=== PATIENT | male | born 1955 | race Caucasian/White ===

== ENCOUNTER → 2021-08-20 15:51 | Outpatient (BNVA) | payer MEDICARE, SELFPAY | PROVIDERS: Visit Provider Urology | DX: N52.9 Male erectile dysfunction, unspecified (principal) | CPT/HCPCS: 99202 ==

== ENCOUNTER → 2022-08-20 09:16 | Outpatient (BNVA) | payer MEDICARE, SELFPAY | PROVIDERS: Visit Provider Urology | DX: N52.9 Male erectile dysfunction, unspecified (principal) | CPT/HCPCS: Q3014 ==

== ENCOUNTER 2023-08-26 08:44 | Outpatient (AMB) | payer MEDICARE, SELFPAY ==
--- NOTE | 2023-08-26 08:52 | A.OFFVIS_ITS ---
Intake Intake Visit Reasons: 1Y Follow Up(Erectile Dys) Intake Note: Patient presents today for a telehealth follow-up Meds- None Allergies to Antibiotic- No Known Allergies Blood Thinner- None - Chief Resource Officer Required: No Allergies bee stings Allergy (Unknown, Uncoded 08/26/23 08:54) severe Medication List - Last Reconciled 08/26/23 by Kush Jang MD atorvastatin 40 mg PO DAILY HPI HPI Comments History of Present Illness Details Joselito is a pleasant male. He is a patient of Dr. Charles. He seen for the following urologic conditions - erectile dysfunction Telemedicine Evaluation 15 min Consultation [facility] Ramsey Video attempted Yearly review Discussion regarding compounding injections Will continue Silver TriMix from [facility] Erectile dysfunction Longstanding Prior use of oral medications Had switched to injectable therapy at [facility] Has prior medications Prescription sent to a compounding pharmacy 12 month follow-up Review of Systems Const All systems reviewed & are unremarkable except as noted in HPI and below Reports no additional complaints Resp Reports no additional complaints GI Reports no additional complaints Reports as per HPI Musc Reports no additional complaints Physical Exam Telemedicine evaluation Appropriate responses Regular breathing rate and rhythm HEENT Head: Yes normal to inspection Ears: hearing grossly normal bilaterally Eyes General: appearance normal, both eyes and all related structures Neck Neck: Yes normal visual inspection Chest Chest palpation & inspection: normal inspection of the chest Resp Effort & Inspection: normal respiratory effort and able to speak in complete sentences Assessment & Plan Assessment & Plan (1) Erectile dysfunction: Code(s): N52.9 - Male erectile dysfunction, unspecified Plan Continue current medication dosing Patient Instructions: Imaging studies, laboratory and physical exam results were discussed and reviewed in detail. No major barriers to patient understanding were identified. An opportunity to ask questions regarding the treatment plan was provided. All questions were answered. The patient expressed understanding and agreement with the above treatment plan. The patient is aware they should contact our office by phone for worsening of their current condition or the appearance of new urologic symptoms. Compliance is encouraged with any medications and followup testing that is ordered. It is a privilege to participate in the urologic care of your patient. If you have any questions or concerns regarding treatment for the above conditions, or other urologic issues, please do not hesitate to contact me. The office telephone contact is [phone]. This note is constructed using voice recognition software. While every effort has been made to ensure accuracy chip loft worker errors may have been included. Yours sincerely, Dr Kush Jang MD, [facility] - Urology Providers of Expert, Compassionate Care for the Genitourinary System Telehealth Telehealth Location of provider rendering services: practice address Location of patient: address on file Patient Identification confirmed using: Name, : Yes Telehealth method: video Patient verbally consented to treatment: Yes Patient verbally consented to billing insurance company: Yes Patient informed of any privacy concerns related to visit: Yes Coding Level of Care Code Tele Est Pt Level 4 (42521) Diagnoses Erectile dysfunction N52.9
== END 2023-08-26 11:43 | disposition home or self-care (01) ==
LOC: HO.HUSH 08:44
PROVIDERS: Visit Provider Urology
DX: N52.9 Male erectile dysfunction, unspecified (principal)
CPT/HCPCS: 99213

== ENCOUNTER → 2023-08-26 08:44 | Outpatient (BNVA) | payer MEDICARE, SELFPAY | PROVIDERS: Visit Provider Urology ==

== ENCOUNTER 2024-09-12 08:41 | Outpatient (AMB) | payer MEDICARE, SELFPAY ==
--- NOTE | 2024-09-12 08:41 | A.OFFVIS_ITS ---
Intake Visit Reasons: 1y/Erectile dys Intake Note: Patient presents today for a 1Y follow-up ERECTILE DYS Meds- None Allergies to Antibiotic- NONE Blood Thinner- None - Dining Service Worker Required: No Allergies bee stings Allergy (Unknown, Uncoded 09/12/24 08:42) severe HPI Comments Details: Joselito is a pleasant male. He is a patient of Dr. Charles. He seen for the following urologic conditions - erectile dysfunction Telemedicine Evaluation 15 min Consultation Emailage Ramsey Video attempted Yearly review Discussion regarding compounding injections Will continue Silver TriMix from [facility] - 10-15U Erectile dysfunction Longstanding Prior use of oral medications Had switched to injectable therapy at [facility] Has prior medications Prescription sent to a compounding pharmacy 12 month follow-up Review of Systems Const Denies chills and Denies fever(s) Card Reports no additional complaints and Denies syncope Resp Denies cough GI Denies abdominal pain and Denies heartburn Reports as per HPI and Denies change in libido Neuro Denies syncope Psych Denies change in libido Endo Denies change in libido Physical Exam Const General: cooperative, healthy appearing, comfortable and no acute distress Orientation/consciousness: patient oriented x3 HEENT Face and sinus: Yes normal facial exam Mouth: moist mucous membranes Neck Neck: Yes normal visual inspection, Yes full ROM and Yes trachea midline Chest Chest palpation & inspection: normal inspection of the chest Resp Effort & Inspection: normal respiratory effort, able to speak in complete sentences and no respiratory distress GI Inspection: Yes normal to inspection Back/Spine/Pelvis Cervical Spine: normal cervical lordosis Thoracic/Lumbar Spine: thoracic and lumbar spine normal to inspection Skin General skin exam: no rashes or lesions noted Neuro General: patient oriented x3, gait normal, tone normal and moves all extremities Extrem General: Yes normal to inspection and Yes capillary refill normal Telehealth Telehealth Telehealth Platform: Emailage Location of provider rendering services: practice address Location of patient: address on file Patient Identification confirmed using: Name, : Yes Telehealth method: video Patient verbally consented to treatment: Yes Patient verbally consented to billing insurance company: Yes Patient informed of any privacy concerns related to visit: Yes Minutes spent on Phone/Video with Pt.: 15 Assessment & Plan Assessment & Plan (1) Erectile dysfunction: Code(s): N52.9 - Male erectile dysfunction, unspecified Category: Medical Plan Continue current dosing Twelve month follow-up office Patient Instructions: This note is constructed using voice recognition software. While every effort has been made to ensure accuracy director systems errors may have been included. Imaging studies, laboratory and physical exam results were discussed and reviewed in detail. No major barriers to patient understanding were identified. An opportunity to ask questions regarding the treatment plan was provided. All questions were answered. The patient expressed understanding and agreement with the above treatment plan. The patient is aware they should contact our office by phone for worsening of their current condition or the appearance of new urologic symptoms. Compliance is encouraged with any medications and followup testing that is ordered. It is a privilege to participate in the urologic care of your patient. If you have any questions or concerns regarding treatment for the above conditions, or other urologic issues, please do not hesitate to contact me. The office tel ephone contact is [phone]. Sincerely, Dr Kush Jang MD, [facility] - Urology Compassionate Specialist Care for the Genitourinary System Coding Level of Care Code Tele Est Pt Level 4 (34787) Complex EM visit Add On G2211 Diagnoses Erectile dysfunction N52.9
--- OUTSIDE RECORDS SUMMARY | 2024-09-12 09:13 | XMS_ITS | Clinical Summary ---
Author Organization [facility] Address [address] [place] [address] Phone Care Team Providers Care Facilities Engineering Manager Name Role Phone Flor Mason Primary Care Provider [phone] Allergies Active Allergy Reactions Criticality Noted Date Comments Bee Venom Protein (Honey Bee) 2021 Bee stings Pravastatin 03/05/2022 Trazodone 03/05/2022 Medications aspirin 81 mg EC tablet Take 81 mg by mouth daily. Active atorvastatin (LIPITOR) 40 mg tablet Take 1 tablet (40 mg total) by mouth 1 (one) time each day. 03/10/2022 Active EPINEPHrine (EpiPen 2-Jad) 0.3 mg/0.3 mL injection Inject 0.3 mg as directed as needed. Active Active Problems Problem Noted Date Diagnosed Date Abnormal stress echo 03/05/2022 Overview (07/19/2024): 02/22/19 Elevated coronary artery calcium score 2 HLD (hyperlipidemia) 03/05/2022 Syncope 03/05/2022 Encounters Date Type Department Care Team Description 07/14/2024 Telephone [facility] [address] [place] [address] Flor Mason PA Referral (Received routine paper referral - Ab - sent to Prim[facility] - 03/10/2022 - [facility]BARA) from Last 3 Months Medical History Medical History Date Comments Erectile dysfunction DX:Erectile dysfunction Insomnia DX:Insomnia Lyme disease DX:Lyme disease Sleep apnea DX:Sleep apnea Social History Tobacco Use Types Packs/Day Years Used Date Smoking Tobacco: Never Smokeless Tobacco: Never Alcohol Use Standard Drinks/Week Comments Yes 0 (1 standard drink = 0.6 oz pur e alcohol) Sex and Gender Information Value Date Recorded Sex Assigned at Not on file Legal Sex Male 12:48 PM EST Gender Identity Not on file Sexual Orientation Not on file Obstetrics History Last Filed Vital Signs Vital Sign Reading Time Taken Comments Blood Pressure 128/80 03/10/2022 9:52 AM EDT Sit ting L Arm Pulse 83 03/10/2022 9:52 AM EDT Temperature - - Respiratory Rate - - Oxygen Saturation - - Inhaled Oxygen Concentration - - Weight 76.2 kg (168 lb) 03/31/2022 12:36 PM EDT Height 180.3 cm (5' 11 ) 03/31/2022 12:36 PM EDT Body Mass Index 23.43 03/31/2022 12:36 PM EDT Plan of Treatment Upcoming Encounters Date Type Department Care Team (Late st Contact Info) Description 11/21/2024 1:00 PM EDT Office Visit [facility] [address] [place] [address] Nate Rios MD [address] [place] [address],[address] [place] [address] Health Maintenance Due Date Last Done Comments DTaP,Tdap,and Td Vaccines (1 - Tdap) 1972 Pneumococcal Vaccine: 50+ Ye ars (1 of 1 - PCV) 11/11/2003 Zoster Vaccines (1 of 2) 11/11/2003 Abdominal Aortic Aneurysm (A AA) Screen 05/19/2022 Cholesterol Screening (Lipid Panel) 05/19/2022 Colorectal Cancer Screening: Colonoscopy 05/19/2022 Depression Screening 05/19/2022 Falls Risk Assessment 05/19/2022 Hepatitis C Screening 05/19/2022 Medicare Annual Wellness Visit 05/19/2022 Social Influencers of Health Screening 05/19/2022 COVID-19 Vaccine ( - 2023-2 5 season) 2024 Influenza Vaccine (#1) 2024 RSV Immunization Patients 60 + Years Old (1 - 1-dose 75+ series) 2028 HIB Vaccines Aged Out No longer eligi ble based on patient's age to complete this topic HPV Vaccines Aged Out No longer eligi ble based on patient's age to complete this topic Hepatitis A Vaccines Aged Out No long er eligible based on patient's age to complete this topic Hepatitis B Vaccines Aged Out No long er eligible based on patient's age to complete this topic IPV Vaccines Aged Out No longer eligi ble based on patient's age to complete this topic MMR Vaccines Aged Out No longer eligi ble based on patient's age to complete this topic Meningococcal ACWY Vaccine Aged Out N o longer eligible based on patient's age to complete this topic Meningococcal B Vacine Aged Out No lo nger eligible based on patient's age to complete this topic RSV Immunization Patients Un ade 20 months Aged Out No longer eligible b ased on patient's age to complete this topic Varicella Vaccines Aged Out No longer eligible based on patient's age to complete this topic Insurance MEDICARE Care Teams Facilities Engineering Manager Relationship Specialty Start Date End Date Flor Mason PA [address] [place] [phone] PCP - General 03/10/22
--- OUTSIDE RECORDS SUMMARY | 2024-09-12 09:13 | XMS_ITS | Clinical Summary ---
Author Organization [facility] Address [address] [place] [address] Care Team Providers Care Cattle Care Worker Name Role Phone Unavailable Primary Care Provider Unavailabl e Allergies Active Allergy Reactions Criticality Noted Date Comments Bee Venom Protein (Honey Bee) Anaphylaxis High 05/21 Medications atorvastatin (LIPITOR) 40 mg tablet 03/13/2022 Active ASPIRIN PO Take 81 mg by mouth in the morning. 06/21/1999 Active chlorhexidine (PERIDEX) 0.12 % solution Use 15 mL in the mouth or throat in the morning and at bedtime. 480 mL 09/18/2022 Active Active Problems No known active problems Social History Tobacco Use Types Packs/Day Years Used Date Smoking Tobacco: Never Assessed Sex and Gender Information Value Date Recorded Sex Assigned at Not on file Legal Sex Male 9:43 AM PST Gender Identity Male 05/18/2022 2:01 PM PST Sexual Orientation Not on file Last Filed Vital Signs Vital Sign Reading Time Taken Comments Blood Pressure 118/64 05/22/2022 10:17 AM EST Pulse 71 05/22/2022 10:17 AM EST Temperature - - Respiratory Rate - - Oxygen Saturation - - Inhaled Oxygen Concentration - - Weight - - Height - - Body Mass Index - - Plan of Treatment Health Maintenance Due Date Last Done Comments Dental Oral Exam 1955 Dental Prophylaxis 1955 Dental X-Ray: Bitewings 1955 Dental X-Ray: Full Mouth 1955 Dental X-Ray: Panoramic 09/20/2025 09/19/2022, 05/21 Meningococcal B Vaccine Aged Out No l onger eligible based on patient's age to complete this topic Medical Devices Implanted Type Area Diabetes Physician Device Identifier Shelf Expiration Date Model / Serial / Lot Nobelreplace Conical Connection Rp 4.3 X 10mm-09/18/2022 Implanted:2022 by Winston Hunter DMD MD (Quantity not on file) Dental Implant Tooth #04 05/28/2027 / [id number] / [id number] Conform Resorbable Membrane 20 X 30 Mm Membrane Resorbable-2022 Implanted:2022 by Winston Hunter DMD MD (Quantity not on file) Membrane Tooth #04 [employer] 07/21/2024 [id number] / [id number] / [id number] Procedures Procedure Name Priority Date/Time Associated Diagnosis Comments PANORAMIC RADIOGRAPHIC IMAGE Routine 05/21/2022 1:00 PM EST from Last 3 Months or Most Recently Relevant to Health Maintenance
--- OUTSIDE RECORDS SUMMARY | 2024-09-12 09:13 | XMS_ITS | Encounter Summary ---
Author Organization [facility] Address [address] [place] [address] Care Team Providers Care Professor Of English Name Role Phone Unavailable Primary Care Provider Unavailabl e Prior Encounters Date Type Department Care Team Description 05/05/2023 9:00 AM EST [facility] Visit [facility] [address], [address] [phone] Duy Meng DMD 04/15/2023 Travel 04/15/2023 11:00 AM EDT Office Visit [facility] [address] [phone] Duy Meng DMD 04/15/2023 11:00 AM EDT Office Visit [facility] [address] [phone] Winston Hunter DMD MD 10/28/2022 Travel 10/28/2022 10:00 AM EDT Office Visit [facility] [address] [phone] Winston Hunter DMD MD 09/18/2022 Travel 09/18/2022 9:00 AM EDT Office Visit [facility] [address] [address] Winston Hunter DMD MD 09/03/2022 Orders Only [facility] [address] [phone] Duy Meng DMD 05/28/2022 1:00 PM EST Office Visit [facility] [address], [address] [address] Duy Meng DMD 05/22/2022 10:00 AM EST Office Visit [facility] [address], [address] [address] Duy Meng DMD 05/21/2022 Travel 05/21/2022 1:00 PM EST Office Visit [facility] [address], [address] [phone] Duy Meng DMD Last Filed Vital Signs Vital Sign Reading Time Taken Comments Blood Pressure 118/64 05/22/2022 10:17 AM EST Pulse 71 05/22/2022 10:17 AM EST Temperature - - Respiratory Rate - - Oxygen Saturation - - Inhaled Oxygen Concentration - - Weight - - Height - - Body Mass Index - - Plan of Treatment Not on file Procedures Procedure Name Priority Date/Time Associated Diagnosis Comments 4 CEMENT CROWN Routine 05/05/2023 9:00 AM EST NC X-RAY Routine 05/05/2023 9:00 AM EST 4 SECOND STAGE IMPLANT SURGERY Routine 04/15/2023 11:00 AM EDT 4 CUSTOM FABRICATED ABUTMENT ? INCLUDES PLACEMENT Routine 04/15/2023 11:00 AM EDT 4 IMPLANT ZIRCONIA CROWN Routine 023 11:00 AM EDT RE-EVALUATION ? POST-OPERATIVE OFFICE VISIT Routine 10/28/2022 10:00 AM EDT 4 GUIDED TISSUE REGENERATION, NATURAL TEETH - RESORBABLE BARRIER, PER SITE Routine 09/18/2022 9:00 AM EDT LIMITED ORAL EVALUATION - PROBLEM FOCUSED Routine 09/18/2022 9:00 AM EDT 4 IMPLANT Routine 09/18/2022 9:00 AM EDT RE-EVALUATION ? POST-OPERATIVE OFFICE VISIT Routine 05/28/2022 1:00 PM EST 4 GUIDED TISSUE REGENERATION, NATURAL TEETH - RESORBABLE BARRIER, PER SITE Routine 05/22/2022 10:00 AM EST 4 BONE REPLACEMENT GRAFT FOR RIDGE PRESERVATION - PER SITE - MAXILLARY Routine 05/22/2022 10:00 AM EST 4 EXTRACTION, ERUPTED TOOTH REQUIRING REMOVAL OF BONE AND/OR SECTIONING OF TOOTH Routine 05/22/2022 10:00 AM EST PANORAMIC RADIOGRAPHIC IMAGE Routine 05/21/2022 1:00 PM EST BITEWING - SINGLE RADIOGRAPHIC IMAGE Routine 05/21/2022 1:00 PM EST LIMITED ORAL EVALUATION - PROBLEM FOCUSED Routine 05/21/2022 1:00 PM EST SINGLE X-RAY Routine 05/21/2022 1:00 PM EST ADDITIONAL X-RAY Routine 05/21/2022 1:00 PM EST Visit Diagnoses Not on file
--- OUTSIDE RECORDS SUMMARY | 2024-09-12 09:13 | XMS_ITS | Clinical Summary ---
Author Organization [facility] Address [address] [place] [address] Care Team Providers Care Sql Data Analyst Name Role Phone Unavailable Primary Care Provider Unavailabl e Social History Tobacco Use Types Packs/Day Years Used Date Smoking Tobacco: Never Assessed Sex and Gender Information Value Date Recorded Sex Assigned at Not on file Gender Identity Not on file Sexual Orientation Not on file Plan of Treatment Health Maintenance Due Date Last Done Comments Hepatitis C Virus Screening 1955 DTaP/Tdap/Td Vaccines (1 - Tdap) 1972 Pneumococcal Vaccines 50+ (1 of 1 - PCV) 11/11/2003 Zoster (Shingles) Vaccine (1 of 2) 11/11/2003 COVID-19 Vaccine ( - 2023-2 5 season) 2024 RSV Vaccine 60 years and old er and Patients (1 - 1-dose 75+ series) 2028 Hepatitis B Vaccines Aged Out No long er eligible based on patient's age to complete this topic
== END 2024-09-12 08:49 | disposition home or self-care (01) ==
LOC: HO.HUSH 08:41
PROVIDERS: Visit Provider Urology
DX: N52.9 Male erectile dysfunction, unspecified (principal)
CPT/HCPCS: 99214; G2211

== ENCOUNTER → 2024-09-12 08:41 | Outpatient (BNVA) | payer MEDICARE, SELFPAY | PROVIDERS: Visit Provider Urology ==